=== PATIENT | female | born 1955 | race Two or more races ===

== ENCOUNTER 2019-06-11 08:53 | Day surgery (SDC) | payer OTHER ==
[~2019-06-11] VITALS: Ht 157.5 cm; Wt 81.6 kg
[2019-06-11 09:31] VITALS: BP 116/57
[2019-06-11 13:51] VITALS: BP 105/60
== END 2019-06-11 12:55 | disposition home or self-care (01) ==
LOC: DS 08:53 → GI 11:30 → OR 11:30 → DS 12:55
DX: Z12.11 Encounter for screening for malignant neoplasm of colon (principal); K57.30 Diverticulosis of large intestine without perforation or abscess without bleeding; I10 Essential (primary) hypertension; E11.9 Type 2 diabetes mellitus without complications; E78.00 Pure hypercholesterolemia, unspecified; Z90.710 Acquired absence of both cervix and uterus; Z79.84 Long term (current) use of oral hypoglycemic drugs; Z79.899 Other long term (current) drug therapy
CPT/HCPCS: 45378; J1200; J1610; J2250; J3010